=== PATIENT | male | born 1985 | race Caucasian/White ===

== ENCOUNTER 2021-05-21 19:37 | Emergency (ER) | payer OTHER ==
[~2021-05-21] VITALS: Ht 182.9 cm; Wt 127.0 kg
[2021-05-21] MEDS ORDERED: SODIUM CHLORIDE 0.9% 1000ML 1,000 ML IV STA (20:00)
[2021-05-21] MEDS ORDERED: DIPHENHYDRAMINE HCL INJ 50 MG/ML VIAL IV STA (20:21)
[2021-05-21] MEDS ORDERED: METOCLOPRAMIDE HCL 10 MG/2ML VIAL IV STA (20:21)
[2021-05-21] MEDS ORDERED: KETOROLAC TROMETHAMINE 30 MG/ML VIAL IV STA (20:21)
[2021-05-21] MEDS ORDERED: SODIUM CHLORIDE 0.9% 1000ML 1,000 ML ONE (20:41)
[2021-05-21] MEDS ORDERED: DIPHENHYDRAMINE HCL INJ 50 MG/ML VIAL ONE (20:41)
[2021-05-21] MEDS ORDERED: METOCLOPRAMIDE HCL 10 MG/2ML VIAL ONE (20:41)
[2021-05-21] MEDS ORDERED: KETOROLAC TROMETHAMINE 30 MG/ML VIAL ONE (20:41)
[2021-05-21] MEDS ORDERED: INSULIN REGULAR, HUMAN 100 UNIT/1 ML IV STA (20:48)
[2021-05-21] MEDS ORDERED: MORPHINE SULFATE INJ 4 MG/ML INJ 1ML IV STA (20:59)
[2021-05-21] MEDS ORDERED: INSULIN REGULAR, HUMAN 100 UNIT/1 ML ONE (21:00)
[2021-05-21] MEDS ORDERED: MORPHINE SULFATE INJ 4 MG/ML INJ 1ML ONE (21:23)
[2021-05-21] MEDS ORDERED: FIORICET 50-301 EACH PO (21:42)
== END 2021-05-21 22:00 | disposition home or self-care (01) ==
LOC: FSED 19:50
DX: G43.109 Migraine with aura, not intractable, without status migrainosus (principal); R73.9 Hyperglycemia, unspecified; R20.2 Paresthesia of skin; Z20.822 Contact with and (suspected) exposure to COVID-19
CPT/HCPCS: 70450; 71046; 80053; 82553; 84484; 85025; 99284; J1200; J1817; J1885; J2270; J2765; J7030; U0002

== ENCOUNTER 2025-05-13 13:22 | Inpatient (IN) | payer SELFPAY ==
[2025-05-13] VITALS (7 sets, daily range): BP systolic 126–150; BP diastolic 64–89; PULSE 89–98; RESP 18–20; TEMP 98.3–100; O2SAT 93–100
[~2025-05-13] VITALS: Ht 188 cm; Wt 132.9 kg
[~2025-05-13 13:22] MED LIST: FIORICET 50-301 EACH PO
[2025-05-13] MEDS: DICYCLOMINE HCL 20 MG/2 ML VIAL IM ONE (14:46)
[2025-05-13] MEDS: ONDANSETRON HCL INJ 2MG/ML 2ML 2 MG/ML VIAL IV STA (14:46)
[2025-05-13] MEDS: KETOROLAC TROMETHAMINE 30 MG/ML VIAL IV STA (14:46)
[2025-05-13] MEDS: SODIUM CHLORIDE 0.9% 1000ML 1,000 ML IV ONE (14:47)
[2025-05-13 14:51] LABS: BASOPHILS % 0.2 % (0.0-1.0); EOSINOPHILS % 0.1 % (0.0-6.0); LYMPHOCYTES % 4.8 % (18.0-39.1); MONOCYTES % 7.6 % (4.4-11.3); NEUTROPHILS % 86.7 % (38.7-80.0); RED CELL DISTRIBUTION WIDTH 12.6 % (11.7-14.4)
[2025-05-13 15:22] LABS: EST GLOMERULAR FILTRATION RATE 112.0 ML/MIN (>=60)
[2025-05-13] MEDS ORDERED: IOPAMIDOL 370 MG/ML 100 ML INFUS..BTL INJ ONE (15:57)
[2025-05-13] MEDS ORDERED: ONDANSETRON HCL INJ 2MG/ML 2ML 2 MG/ML VIAL IV PRN (16:45)
[2025-05-13] MEDS: SODIUM CHLORIDE 0.9% 1000ML 1,000 ML IV SCH ×2 (16:45→20:30)
[2025-05-13 17:11] LABS: CHOL/HDL RATIO 12.5 (3.9-4.7)
[2025-05-13] MEDS: Morphine 4mg INJECTION 4 MG/ML INJ IV PRN (18:03)
[2025-05-13 18:42] LABS: LEUKOCYTE ESTERASE ,URINE NEGATIVE (NEGATIVE)
[2025-05-13 18:43] LABS: PROTEIN,URINE DIPSTICK 2+ (NEGATIVE); URINE UROBILINOGEN 0.2 mg/dL (0.2 - 1)
[2025-05-13 18:48] LABS: EPITHELIAL CELLS,URINE FEW /LPF; WBC,URINE (MAN) 0-5 /HPF (0-5)
[2025-05-13] MEDS ORDERED: METFORMIN HCL500 M2 PO (20:04)
[2025-05-13] MEDS ORDERED: NEURONTIN300 MG PO (20:06)
[2025-05-13] MEDS: DEXTROSE 5%/0.45% SOD CHL 1,000 ML IV SCH (20:30)
[2025-05-13] MEDS ORDERED: FAMOTIDINE 20 MG TAB PO PRN (20:30)
[2025-05-13] MEDS ORDERED: POTASSIUM CHLORIDE 20MEQ/100ML 200 ML IV PRN (20:30)
[2025-05-13] MEDS ORDERED: HYDRALAZINE HCL 20 MG/ML VIAL IV PRN (20:30)
[2025-05-13] MEDS: INSULIN REGULAR, HUMAN 3ML VL 100 UNIT in SODIUM CHLORIDE 0.45% 100 ML 100 ML IV SCH (22:13)
[2025-05-13] MEDS ORDERED: DEXTROSE 50% SYRINGE 50 ML IV PRN (22:15)
[2025-05-13] MEDS ORDERED: MAGNESIUM/ALUMINUM/SIMETHICONE 30 ML UDC PO PRN (23:00)
[2025-05-13] MEDS ORDERED: DEXTROSE 5%/0.45% SOD CHL 1,000 ML IV PRN (23:00)
[2025-05-13] MEDS ORDERED: GUAIFENESIN/DEXTROMETHORPHAN LIQD 5 ML UDC PO PRN (23:00)
[2025-05-13] MEDS ORDERED: POLYETHYLENE GLYCOL 3350 17 GM PACK PO PRN (23:00)
[2025-05-13] MEDS ORDERED: POTASSIUM CHLORIDE 20MEQ/100ML 100 ML IV PRN (23:00)
[2025-05-13] MEDS: ATORVASTATIN 40 MG TAB PO SCH (23:14)
[2025-05-13] MEDS: INSULIN REGULAR, HUMAN 3ML VL 100 UNIT in SODIUM CHLORIDE 0.9% 100 ML IV SCH (23:32)
[2025-05-14] VITALS (31 sets, daily range): BP systolic 110–147; BP diastolic 52–85; PULSE 69–97; RESP 12–31; TEMP 99.1–102; O2SAT 90–100
[2025-05-14 00:24] LABS: EST GLOMERULAR FILTRATION RATE 112.0 ML/MIN (>=60)
[2025-05-14] MEDS: MAGNESIUM SULF 1GRAM/DEXTROSE 100 ML IV PRN (00:36)
[2025-05-14 04:28] LABS: BASOPHILS % 0.2 % (0.0-1.0); EOSINOPHILS % 0.2 % (0.0-6.0); LYMPHOCYTES % 10.1 % (18.0-39.1); MONOCYTES % 8.4 % (4.4-11.3); NEUTROPHILS % 80.7 % (38.7-80.0); RED CELL DISTRIBUTION WIDTH 12.7 % (11.7-14.4)
[2025-05-14 04:45] LABS: EST GLOMERULAR FILTRATION RATE 116.0 ML/MIN (>=60)
[2025-05-14] MEDS: ENOXAPARIN SOD INJ 40 MG/0.4 ML SYR SC SCH (08:29)
[2025-05-14] MEDS: MULTIVITAMINS/MINERALS TAB PO SCH (08:29)
[2025-05-14] MEDS ORDERED: FENOFIBRATE 145 MG TAB PO SCH (09:00)
[2025-05-14] MEDS ORDERED: DEXTROSE 50% SYRINGE 50 ML IV PRN (09:45)
[2025-05-14 10:46] LABS: EST GLOMERULAR FILTRATION RATE 116.0 ML/MIN (>=60)
[2025-05-14] MEDS: NPH, HUMAN INSULIN ISOPHANE 100 UNIT/1 ML 3ML VIAL SQ SCH (11:04)
[2025-05-14] MEDS: FENOFIBRATE 145 MG TAB PO SCH (11:51)
[2025-05-14] MEDS: INSULIN LISPRO 100 UNIT/1 ML 3ML VIAL SQ SCH (11:54)
[2025-05-14 16:59] LABS: EST GLOMERULAR FILTRATION RATE 113.0 ML/MIN (>=60)
[2025-05-14] MEDS ORDERED: NPH, HUMAN INSULIN ISOPHANE 100 UNIT/1 ML 3ML VIAL SQ SCH (17:00)
[2025-05-14 17:23] LABS: CHOL/HDL RATIO 12.3 (3.9-4.7)
[2025-05-14] MEDS: ACETAMINOPHEN 325 MG TAB PO PRN (20:32)
[2025-05-14] MEDS: MELATONIN 5 MG TABLET PO PRN (20:32)
[2025-05-14] MEDS: INSULIN GLARGINE 100 UNITS/ML VIAL SQ SCH (21:26)
[2025-05-14 22:04] LABS: EST GLOMERULAR FILTRATION RATE 115.0 ML/MIN (>=60)
[2025-05-14 22:24] LABS: CHOL/HDL RATIO 13.5 (3.9-4.7)
[2025-05-15] VITALS (8 sets, daily range): BP systolic 135–155; BP diastolic 79–96; PULSE 73–82; RESP 15–20; TEMP 98.5–98.7; O2SAT 90–98
[2025-05-15 05:06] LABS: BASOPHILS % 0.1 % (0.0-1.0); EOSINOPHILS % 1.0 % (0.0-6.0); LYMPHOCYTES % 13.9 % (18.0-39.1); MONOCYTES % 7.8 % (4.4-11.3); NEUTROPHILS % 76.9 % (38.7-80.0); RED CELL DISTRIBUTION WIDTH 12.9 % (11.7-14.4)
[2025-05-15 05:32] LABS: CHOL/HDL RATIO 13.3 (3.9-4.7)
[2025-05-15 05:35] LABS: EST GLOMERULAR FILTRATION RATE 118.0 ML/MIN (>=60)
[2025-05-15] MEDS ORDERED: ATORVASTATIN CA20 MG PO (11:33)
[2025-05-15] MEDS ORDERED: NOVOLIN N100 UNIT/1 SC (11:33)
[2025-05-15] MEDS ORDERED: TRICOR145 MG PO (11:33)
== END 2025-05-15 11:53 | disposition home or self-care (01) | DRG 637 ==
LOC: ER 14:07 → ERHOLD 16:38 → MED/SURG 18:16 → OBSVTOIN 20:52 → ICU 22:00
PROVIDERS: ADMIT Family Medicine Adult Medicine; ATTEND Family Medicine Adult Medicine
DX: E11.10 Type 2 diabetes mellitus with ketoacidosis without coma (principal); K85.90 Acute pancreatitis without necrosis or infection, unspecified; E87.1 Hypo-osmolality and hyponatremia; K59.00 Constipation, unspecified; E78.5 Hyperlipidemia, unspecified; I10 Essential (primary) hypertension; E78.1 Pure hyperglyceridemia; E66.9 Obesity, unspecified; K80.20 Calculus of gallbladder without cholecystitis without obstruction; J98.01 Acute bronchospasm; Z79.84 Long term (current) use of oral hypoglycemic drugs; Z88.0 Allergy status to penicillin; Z72.0 Tobacco use; Z68.37 Body mass index [BMI] 37.0-37.9, adult
CPT/HCPCS: 36415; 74177; 76705; 80048; 80053; 80061; 81001; 82948; 83036; 83690; 83735; 84443; 84478; 85025; 93005; 99285; J1650; J1885; J2270; J2405; J3475; J7030; J7050; Q9967